=== PATIENT | male | born 1970 | race Two or more races ===

== ENCOUNTER 2019-09-19 07:11 | Outpatient (CLI) | payer OTHER | END 2019-09-19 08:23 | disposition home or self-care (01) | LOC: RAD 07:11 | DX: N20.1 Calculus of ureter (principal) ==

== ENCOUNTER → 2020-12-27 | Emergency (ER) | payer OTHER ==
[~2020-12-27] VITALS: Ht 172.7 cm; Wt 79.4 kg
== END | disposition home or self-care (01) ==
LOC: ER 13:21
DX: L02.612 Cutaneous abscess of left foot (principal)

== ENCOUNTER 2021-02-26 03:22 | Emergency (ER) | payer OTHER ==
[~2021-02-26] VITALS: Ht 172.7 cm; Wt 80.7 kg
[2021-02-26] MEDS ORDERED: VISTARIL (03:49)
[2021-02-26] MEDS ORDERED: NEURONTIN800 MG (03:49)
[2021-02-26] MEDS ORDERED: LEVSIN0.125 MG PO (07:22)
[2021-02-26] MEDS ORDERED: CIPRO500 MG PO (07:22)
[2021-02-26] MEDS ORDERED: PROTONIX20 MG PO (07:22)
[2021-02-26] MEDS ORDERED: INTESTINEX680 M1 PO (07:22)
[2021-02-26] MEDS ORDERED: METRONIDAZOLE500 MG PO (07:22)
[2021-02-26] MEDS ORDERED: ACETAMINOPHEN650 M2 PO (07:22)
== END 2021-02-26 07:31 | disposition home or self-care (01) ==
LOC: ER 03:22
DX: K52.89 Other specified noninfective gastroenteritis and colitis (principal)

== ENCOUNTER 2024-01-30 08:03 | Outpatient (CLI) | payer OTHER ==
[~2024-01-30 08:03] MED LIST: ACETAMINOPHEN650 M2 PO; CIPRO500 MG PO; GABAPENTIN600 MG PO; INTESTINEX680 M1 PO; LEVSIN0.125 MG PO; LORAZEPAM1 MG PO; METRONIDAZOLE500 MG PO; NEURONTIN800 MG; OXYC1TAB9 PO; PROTONIX20 MG PO; VISTARIL
== END 2024-01-30 08:15 | disposition home or self-care (01) ==
LOC: TOM 08:03
PROVIDERS: ATTEND Internal Medicine Pulmonary Disease
DX: R06.02 Shortness of breath (principal); Z86.718 Personal history of other venous thrombosis and embolism